=== PATIENT | female | born 1955 | race African-American/Black ===

== ENCOUNTER 2016-12-29 10:37 | Observation (INO) | payer OTHER ==
[2016-12-29] MEDS: NS 1000 ML 1,000 ML IV SCH (12:55)
[2016-12-29 13:01] LABS: EOSINOPHILS # (AUTO) 0.1 x10^3/uL (0.0-0.2); EOSINOPHILS % (AUTO) 2.2 % (0.9-2.9); HEMATOCRIT 37.5 % (36.0-47.0); HEMOGLOBIN 12.4 g/dL (12.0-16.0); LYMPHOCYTES # (AUTO) 1.2 X10^3/uL (1.3-2.9); LYMPHOCYTES % (AUTO) 26.4 % (21.0-51.0); MEAN CORPUSCULAR HEMOGLOBIN 26.9 pg (27.0-34.0); MEAN CORPUSCULAR VOLUME 81.4 fL (80.0-100.0); MEAN PLATELET VOLUME 8.1 fL (7.4-11.0); MONOCYTES # (AUTO) 0.6 x10^3/uL (0.3-0.8); MONOCYTES % (AUTO) 12.7 % (0.0-13.0); NEUTROPHILS # (AUTO) 2.7 x10^3/uL (2.2-4.8); NEUTROPHILS % (AUTO) 57.7 % (42.0-75.0); PLATELET COUNT 262 X10^3/uL (150.0-450.0); RED BLOOD COUNT 4.61 X10^6/uL (3.5-5.4); RED CELL DISTRIBUTION WIDTH 14.5 % (11.6-16.5); WHITE BLOOD COUNT 4.6 X10^3/uL (3.6-10.0)
[2016-12-29 13:21] LABS: ALANINE AMINOTRANSFERASE 19 Units/L (12-78); ALBUMIN 3.6 g/dL (3.4-5.0); ALKALINE PHOSPHATASE 104 Units/L (46-116); ASPARTATE AMINO TRANSFERASE 24 Units/L (15-37); BLOOD UREA NITROGEN 16 mg/dL (7-18); CALCIUM 9.4 mg/dL (8.5-10.1); CARBON DIOXIDE 28.7 mmol/L (21-32); CHLORIDE 103 mmol/L (98-107); CKMB % 0.8 % (<4); CREATINE KINASE 155 Units/L (26-192); CREATINE KINASE MB 1.2 ng/mL (0-4.0); CREATININE 1.09 mg/dL (0.55-1.02); MAGNESIUM 1.5 mg/dL (1.7-2.9); SODIUM 140 mmol/L (136-145); TOTAL PROTEIN 7.8 g/dL (6.4-8.2); TROPONIN I < 0.02 ng/mL (0-1.5); eGFR BLACK RACES > 60 (>60); eGFR NON BLACK RACES 54 (>60)
[2016-12-29 13:23] VITALS: BMI 40.3
--- NOTE | 2016-12-29 14:03 | RAD ---
AP chest Indication: Bradycardia which shortness of breath. Comparison: None available Findings: Lungs are clear and heart size is normal. No pleural effusion or pneumothorax. No acute oss eous abnormality. There appears to bilateral os acromiale. Impression: No acute cardiopulmonary abnormality. Reported By:
[2016-12-29 15:47] LABS: BILIRUBIN,URINE NEGATIVE (NEGATIVE); BLOOD/HEMOGLOBIN,URINE NEGATIVE (NEGATIVE); GLUCOSE, URINE NEGATIVE (NEGATIVE); KETONES,URINE NEGATIVE (NEGATIVE); LEUKOCYTE ESTERASE ,URINE NEGATIVE (NEGATIVE); NITRITES,URINE NEGATIVE (NEGATIVE); PROTEIN,URINE NEGATIVE (NEGATIVE); UROBILINOGEN,URINE NORMAL (NORMAL)
[2016-12-29 15:56] LABS: APPEARANCE,URINE CLEAR (CLEAR); BACTERIA,URINE TRACE /HPF (NEGATIVE); COLOR,URINE PALE YELLOW (YELLOW); RBC,URINE 0-2 /HPF (NEGATIVE); SQUAMOUS EPITHELIAL CELL,UR RARE /HPF (NEGATIVE)
[2016-12-30 07:27] LABS: BASOPHILS % (AUTO) 0.9 % (0.2-1.0); EOSINOPHILS # (AUTO) 0.1 x10^3/uL (0.0-0.2); HEMATOCRIT 36.5 % (36.0-47.0); LYMPHOCYTES # (AUTO) 1.3 X10^3/uL (1.3-2.9); LYMPHOCYTES % (AUTO) 31.5 % (21.0-51.0); MEAN CORPUSCULAR HEMOGLOBIN 26.7 pg (27.0-34.0); MEAN CORPUSCULAR HGB CONC 32.9 g/dL (33.0-35.0); MEAN CORPUSCULAR VOLUME 81.2 fL (80.0-100.0); MEAN PLATELET VOLUME 7.9 fL (7.4-11.0); MONOCYTES # (AUTO) 0.6 x10^3/uL (0.3-0.8); MONOCYTES % (AUTO) 14.8 % (0.0-13.0); NEUTROPHILS % (AUTO) 49.8 % (42.0-75.0); PLATELET COUNT 252 X10^3/uL (150.0-450.0); RED BLOOD COUNT 4.49 X10^6/uL (3.5-5.4); WHITE BLOOD COUNT 4.1 X10^3/uL (3.6-10.0)
[2016-12-30 07:31] LABS: ALANINE AMINOTRANSFERASE 17 Units/L (12-78); ALBUMIN 3.3 g/dL (3.4-5.0); ALKALINE PHOSPHATASE 99 Units/L (46-116); ASPARTATE AMINO TRANSFERASE 22 Units/L (15-37); BLOOD UREA NITROGEN 17 mg/dL (7-18); CALCIUM 9.1 mg/dL (8.5-10.1); CARBON DIOXIDE 27.7 mmol/L (21-32); CHLORIDE 106 mmol/L (98-107); COR CA(FOR HYPOALB) 9.7 mg/dL (8.5-10.1); COR NA(FOR HYPERGLY) 141 mmol/L (136-145); CREATININE 1.05 mg/dL (0.55-1.02); SODIUM 141 mmol/L (136-145); TOTAL PROTEIN 7.1 g/dL (6.4-8.2); eGFR BLACK RACES > 60 (>60); eGFR NON BLACK RACES 56 (>60)
[2016-12-30] MEDS ORDERED: GABAPENTIN PO PRN (08:17)
[2016-12-30] MEDS ORDERED: NEURONTIN CAP 300 MG PO PRN (08:34)
[2016-12-30] MEDS ORDERED: PATIENT'S HOME MEDICATION (Losartan Potassium [Losartan Potassium] 1 TAB) PO SCH (09:00)
[2016-12-30] MEDS: COZAAR PO SCH (09:13)
[2016-12-30] MEDS: PLAVIX PO SCH (09:14)
[2016-12-30] MEDS: NexIUM PO SCH (09:20)
[2016-12-30] MEDS: NORCO 10/325 TAB PO PRN (13:20)
[2016-12-30] MEDS: NS 1000 ML 1,000 ML IV SCH (13:43)
--- NOTE | 2016-12-30 18:26 | DR.H&P ---
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 PT HAS HX OF HTN. 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 PT WAS BRADYCARDIC, EKG RATE IN 40'S. PT admitted to ICU for further evaluation of bradycardia. Plan to obtain cardiac enzymes, EKG, chest x-ray, telemetry monitoring admission labs CBC CMP and magnesium level. We will hold beta blockers and continue losartan for blood pressure management. - Past Medical History Past Medical History: Arthritis, Diabetes, Hypertension - Past Surgical History Surgical History: Appendectomy, [employer] DESIGN Surgery Additional Surgical History: TIA - Family History Family Medical History: Diabetes Mellitus, [place], Coronary Artery Disease, Sudden Cardiac , Hypertension - Social History Does patient currently use any type of tobacco product: No Have you used tobacco products in the last 12 months: No Type of Tobacco Use: None Alcohol Use: None Drug Use: None - Medications Home Medications: Hydrocodone-Acet 10/325 mg [NORCO 10 MG/325 MG *] 1 tab PO Q8H PRN 12/29/16 [ History Confirmed 12/29/16] Losartan Potassium 1 tab PO DAILY 12/29/16 [History Confirmed 12/29/16] - Review of Systems Constitutional: Weakness Eyes: No Symptoms Reported ENT: No Symptoms Reported Respiratory: SOB with Excertion Cardiovascular: Light Headedness Gastrointestinal: Nausea, Vomiting Genitourinary: No Symptoms Reported Musculoskeletal: No Symptoms Reported Skin: No Symptoms Reported Neurological: Weakness - Physical Exam Vital Signs: Temperature 98.2 F Pulse Rate [Apical] 49 Respiratory Rate 16 Blood Pressure [Right Arm] 156/67 Blood Pressure 136/63 O2 Sat by Pulse Oximetry 99 Oriented: Normal Eyes: Normal Ear: Normal Nose: Normal Throat: Normal Respiratory: RLL Diminished, LLL Diminished Cardiovascular: Bradycardia, Edema : Normal Auscultation: Bowel Sounds: Normal Palpation: Normal Tenderness: Normal Skin: Diaphoresis Musculoskeletal: Back:Thoracic, Back:Lumbar Psychiatric: Anxiety Speech Pattern: Clear, Appropriate - Assessment/Plan (1) Bradycardia Status: Acute Plan: symptomatic bradycardia. Admit to ICU, telemetry, cardiac enzymes CBC CMP and magnesium on admission, 12-lead EKG, chest x-ray. Blood pressure monitoring. Hold beta james, repeat a.m. labs (2) Hypertension Status: Acute (3) Diabetes Status: Acute
[2016-12-30] MEDS: NORVASC TAB 5 MG PO SCH (20:17)
[2016-12-30] MEDS: MAG-OX TAB PO SCH (20:18)
[2016-12-31 06:19] LABS: BASOPHILS % (AUTO) 0.9 % (0.2-1.0); EOSINOPHILS # (AUTO) 0.1 x10^3/uL (0.0-0.2); EOSINOPHILS % (AUTO) 2.8 % (0.9-2.9); HEMATOCRIT 36.3 % (36.0-47.0); HEMOGLOBIN 12.2 g/dL (12.0-16.0); LYMPHOCYTES # (AUTO) 1.2 X10^3/uL (1.3-2.9); LYMPHOCYTES % (AUTO) 33.7 % (21.0-51.0); MEAN CORPUSCULAR HEMOGLOBIN 27.2 pg (27.0-34.0); MEAN CORPUSCULAR HGB CONC 33.7 g/dL (33.0-35.0); MEAN CORPUSCULAR VOLUME 80.8 fL (80.0-100.0); MEAN PLATELET VOLUME 8.1 fL (7.4-11.0); MONOCYTES # (AUTO) 0.5 x10^3/uL (0.3-0.8); MONOCYTES % (AUTO) 14.2 % (0.0-13.0); NEUTROPHILS # (AUTO) 1.8 x10^3/uL (2.2-4.8); NEUTROPHILS % (AUTO) 48.4 % (42.0-75.0); PLATELET COUNT 242 X10^3/uL (150.0-450.0); RED BLOOD COUNT 4.49 X10^6/uL (3.5-5.4); RED CELL DISTRIBUTION WIDTH 15.1 % (11.6-16.5); WHITE BLOOD COUNT 3.7 X10^3/uL (3.6-10.0)
[2016-12-31 06:28] LABS: ALANINE AMINOTRANSFERASE 18 Units/L (12-78); ALBUMIN 3.3 g/dL (3.4-5.0); ALKALINE PHOSPHATASE 101 Units/L (46-116); ASPARTATE AMINO TRANSFERASE 22 Units/L (15-37); BLOOD UREA NITROGEN 13 mg/dL (7-18); CALCIUM 9.1 mg/dL (8.5-10.1); CARBON DIOXIDE 28.9 mmol/L (21-32); CHLORIDE 105 mmol/L (98-107); COR CA(FOR HYPOALB) 9.7 mg/dL (8.5-10.1); CREATININE 1.09 mg/dL (0.55-1.02); SODIUM 141 mmol/L (136-145); TOTAL PROTEIN 7.2 g/dL (6.4-8.2); eGFR BLACK RACES > 60 (>60); eGFR NON BLACK RACES 54 (>60)
[2016-12-31] MEDS: MAG-OX TAB PO SCH (06:29)
[2016-12-31 08:09] VITALS: BP 154/72
[2016-12-31] MEDS: COZAAR PO SCH (08:24)
[2016-12-31] MEDS: NORVASC TAB 5 MG PO SCH (08:24)
[2016-12-31] MEDS: PLAVIX PO SCH (08:24)
[2016-12-31] MEDS: NORCO 10/325 TAB PO PRN (08:30)
[2016-12-31] MEDS: NexIUM PO SCH (08:30)
== END 2016-12-31 11:20 | disposition home or self-care (01) ==
LOC: ICU 10:37 → UNDOADMOB 10:37 → ICU 12:00
PROVIDERS: ADMIT Internal Medicine; ATTEND Internal Medicine
DX: R00.1 Bradycardia, unspecified (principal); I10 Essential (primary) hypertension; R42 Dizziness and giddiness; E11.9 Type 2 diabetes mellitus without complications; R82.99 Other abnormal findings in urine
CPT/HCPCS: 36415; 71010; 80053; 81001; 82550; 82553; 83735; 84484; 85025; 93005; 93010; A4222; G0378

== ENCOUNTER 2017-02-10 19:58 | Emergency (ER) | payer OTHER ==
[2017-02-10 20:06] VITALS: BMI 41.1
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
[2017-02-10] MEDS ORDERED: TORADOL 60 MG VIAL IM ONE (21:15)
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
[2017-02-10] MEDS ORDERED: TORADOL 60 MG VIAL ONE (21:23)
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
[2017-02-10 22:29] VITALS: BP 163/71
== END 2017-02-10 22:20 | disposition home or self-care (01) ==
LOC: ER 20:06
DX: S29.019A Strain of muscle and tendon of unspecified wall of thorax, initial encounter (principal); S33.5XXA Sprain of ligaments of lumbar spine, initial encounter; S13.9XXA Sprain of joints and ligaments of unspecified parts of neck, initial encounter; R51 Headache; V49.9XXA Car occupant (driver) (passenger) injured in unspecified traffic accident, initial encounter
CPT/HCPCS: 70450; 72125; 72128; 72131; 96372; 99283; J1885

== ENCOUNTER 2017-06-08 12:10 | Observation (INO) | payer OTHER ==
[2017-06-08] MEDS ORDERED: HumuLIN R SUBCUT PRN (12:50)
[2017-06-08] MEDS ORDERED: GABAPENTIN PO PRN (12:55)
--- NOTE | 2017-06-08 13:35 | DR.H&P ---
H&P - History & Physical for Day of: H&P Date: 06/08/17 - Chief Complaint Chief Complaint: LEFT SIDE WEAKNESS, LARIOS, DIZZINESS - Allergies Allergies/Adverse Reactions: Allergies Allergy/AdvReac Type Severity Reaction Status Date / Time No Known Drug Allergies Allergy Verified 12/29/16 12:12 - History of Present Illness History of Present Illness: 62 BF DIRECT ADMIT FROM DR SCHNEIDER OFFICE WITH NEW ONSET OF LEFT SIDE WEAKNESS, UPPER AND LOWER EXTREMITY WEAKNESS WITH LARIOS, DIZZINESS AND LARIOS. PT STATES WEAKNESS FOR 2 DAYS WITHOUT IMPROVEMENT. PT HAS PMH OF HTN, DM, OA, CAD, HYPERLIPIDEMIA. LUMBAR SPINE DDD. PT ADMITTED FOR R/O CVA , BP CONTROL, CARDIAC MONITING AND EVALUATION OF WEAKNESS. 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 denies: Chest Pain Gastrointestinal: Nausea Genitourinary: No Symptoms Reported Musculoskeletal: Back Pain, Neck Pain Skin: No Symptoms Reported Neurological: Weakness, Numbness, Incoordination - Physical Exam Vital Signs: Blood Pressure [Left Arm] 163/71 Blood Pressure [Right Arm] 154/72 Blood Pressure 163/71 Oriented: Normal Eyes: Normal Ear: Normal Nose: Normal Throat: Normal Respiratory: RLL Diminished, LLL Diminished Cardiovascular: Normal : Normal Auscultation: Bowel Sounds: Normal Palpation: Normal Tenderness: Normal Skin: Normal Musculoskeletal: Back:Thoracic, Back:Lumbar, Motor Deficit (WEAKNESS TO LEFT UPPER AND LOWER EXTREMITY WEAKNESS), Sensory Deficit Psychiatric: Anxiety Affect: Anxious Speech Pattern: Clear, Appropriate - Assessment/Plan (1) Acute left-sided weakness Status: Acute Plan: ADMIT ICU, CT HEAD, CTA CAROTIDS. BP AND LIPID CONTROL. SSI, BLOOD SUGAR MONITORING. ADMISSION LABS, EKG, CARDIAC PROFILE. MRI LUMBAR SPINE, PAIN CONTROL, PLAVIX ASA (2) Hyperlipidemia Status: Acute (3) Headache disorder Status: Acute (4) Dizziness Status: Acute (5) Diabetes Status: Acute (6) Hypertension Status: Acute
[2017-06-08 14:33] LABS: BASOPHILS % (AUTO) 0.5 % (0.2-1.0); EOSINOPHILS # (AUTO) 0.1 x10^3/uL (0.0-0.2); EOSINOPHILS % (AUTO) 0.9 % (0.9-2.9); HEMATOCRIT 39.4 % (36.0-47.0); LYMPHOCYTES # (AUTO) 1.2 X10^3/uL (1.3-2.9); LYMPHOCYTES % (AUTO) 21.4 % (21.0-51.0); MEAN CORPUSCULAR HEMOGLOBIN 26.7 pg (27.0-34.0); MEAN CORPUSCULAR HGB CONC 33.1 g/dL (33.0-35.0); MEAN CORPUSCULAR VOLUME 80.9 fL (80.0-100.0); MEAN PLATELET VOLUME 7.4 fL (7.4-11.0); MONOCYTES # (AUTO) 0.4 x10^3/uL (0.3-0.8); MONOCYTES % (AUTO) 7.7 % (0.0-13.0); NEUTROPHILS # (AUTO) 3.9 x10^3/uL (2.2-4.8); NEUTROPHILS % (AUTO) 69.5 % (42.0-75.0); PLATELET COUNT 320 X10^3/uL (150.0-450.0); RED BLOOD COUNT 4.87 X10^6/uL (3.5-5.4); RED CELL DISTRIBUTION WIDTH 14.7 % (11.6-16.5); WHITE BLOOD COUNT 5.6 X10^3/uL (3.6-10.0)
[2017-06-08] MEDS: NORCO 10/325 TAB PO PRN ×3 (14:50→22:16)
[2017-06-08 15:11] LABS: BLOOD UREA NITROGEN 12 mg/dL (7-18); CALCIUM 9.2 mg/dL (8.5-10.1); CHLORIDE 99 mmol/L (98-107); COR NA(FOR HYPERGLY) 139 mmol/L (136-145); CREATININE 1.13 mg/dL (0.55-1.02); SODIUM 138 mmol/L (136-145); TROPONIN I < 0.02 ng/mL (0-1.5); eGFR BLACK RACES > 60 (>60); eGFR NON BLACK RACES 52 (>60)
[2017-06-08 15:17] LABS: ALANINE AMINOTRANSFERASE 23 Units/L (12-78); ALBUMIN 3.7 g/dL (3.4-5.0); ALKALINE PHOSPHATASE 129 Units/L (46-116); ASPARTATE AMINO TRANSFERASE 20 Units/L (15-37); CKMB % 1.1 % (<4); CREATINE KINASE 100 Units/L (26-192); CREATINE KINASE MB 1.1 ng/mL (0-4.0); TOTAL PROTEIN 8.8 g/dL (6.4-8.2)
[2017-06-08] MEDS ORDERED: NS 100 ML IV 100 ML IV ONE (16:20)
--- NOTE | 2017-06-08 16:45 | MRI ---
HISTORY: Lower extremity paresthesia, weakness, low back pain, degenerative disc disease Study: MRI lumbar spine without contrast Comparison: 05/22/2015 MRI, 02/10/2017 CT Technique: Multiplanar multi-sequence MRI of the lumbar spine was obtained. Sagittal T1, sagittal T2 , and stir weighted images, axial T1, and axial T2 images were obtained. Findings: The lumbar spine demonstrates normal alignment. No abnormal cord or marrow signal identified. The co nus of the cord terminates normally. The surrounding soft tissues are within normal limits. Vertebra l body heights are preserved. Multilevel spondylosis and disc desiccation is present. T12 -- L1: No significant stenosis. L1 -- L2: No significant stenosis. L2 -- L3: Chgy-ws-qfhuqjmo facet degenerative changes with lateral disc bulging resulting in mild patricia ateral foraminal narrowing. L3 -- L4: There is disc height loss with desiccation, broad-based disc bulge and moderate facet arthr opathy/hypertrophy changes resulting in moderate to severe left and moderate right foraminal stenosis and mild bilateral lateral recess stenosis. L4 -- L5: There is a broad-based disc bulge and facet hypertrophy changes resulting in moderate left foraminal stenosis and [id number] right lateral recess and foraminal stenosis. L5 -- S1: There is a broad-based disc bulge and advanced facet degenerative/hyper trophic changes wit h fluid in the left facet joint. There is moderate left and mild right foraminal stenosis. IMPRESSION: Chronic multilevel discogenic and facet degenerative changes as described worse at L3-L4; please see above for full detail. Reported By:
--- NOTE | 2017-06-08 17:40 | CT ---
CT brain without contrast Indication: Left-sided weakness Comparison: 02/10/2017 Technique: Multiple axial images of the brain were obtained from the skull base to the vertex without administra tion of IV contrast. Findings: No acute intraparenchymal hemorrhage or mass can be identified. No extra-axial fluid collections are seen. No alteration in the attenuation of the brain parenchyma can be identified to suggest acute o r subacute ischemic change. The ventricular system is symmetric and nondilated. The extracranial st ructures are grossly unremarkable. IMPRESSION: 1. No acute intracranial process is identified. Reported By:
--- NOTE | 2017-06-08 18:02 | CT ---
Indication: CVA. Exam: CTA carotids. Technique: Axial spiral images were obtained from the base the skull through the aortic arch after ashley martha administration IV contrast with coronal and sagittal 3D MIP reconstructions performed. Findings: The visualized aortic arch is well opacified and the great vessels are patent and normal ca liber. Both common carotid arteries are patent and normal caliber. The carotid bifurcation are widely patent bilaterally with no significant plaque or narrowing seen. Both internal carotid arteries are patent normal caliber seen to the base of the skull with no dissection or narrowing. The carotid siph ons are patent normal caliber with a normal bifurcation intracranially . There is good tapering of th e peripheral MCA and JULIA vessels with no proximal filling defect or vessel cut off . No vertebral art eries are patent normal caliber. There is no dissection or narrowing seen. The intracranial portions of the vertebrals are patent and the basilar artery is unremarkable with both posterior cerebral terese blanca appearing patent and normal caliber. The visualized intracranial vessels taper peripherally with no vascular malformation or aneurysm seen . There is a questionable 6 mm nodule along centrally jennyfer g the right upper lobe and there are some tiny pleural-based nodules or scarring along both upper lob es and apices . There are lymph nodes in the AP window measuring up to 1.4 cm with right paratracheal lymph nodes with the largest seen inferiorly measuring 1.2 cm. Degenerative seen throughout spine wi th no aggressive osseous lesion. The paravertebral soft tissues are normal. Impression: Unremarkable carotid vasculature in the neck with no significant plaque or narrowing seen in the bifu rcations. Unremarkable vertebral arteries with no narrowing or dissection. Unremarkable intracranial vasculature. Small pulmonary nodules along the upper lobes and apices and mild mediastinal adenopathy. Recommend a follow-up CT scan of the chest for further evaluation. Reported By:
--- NOTE | 2017-06-08 18:33 | RAD ---
Indication: Pain Exam: Portable chest Comparison: 12/31/2016 Findings: The heart is normal. The pulmonary vessels are normal. There is overlying EKG lead artifact . No consolidation or effusion is seen. The bones are intact. Impression: Overlying EKG lead artifact otherwise, stable with no acute abnormality seen. Reported By:
[2017-06-08] MEDS: SNACK - Diabetic Appropriate PO SCH (20:30)
[2017-06-09 06:23] LABS: BASOPHILS % (AUTO) 0.4 % (0.2-1.0); EOSINOPHILS # (AUTO) 0.1 x10^3/uL (0.0-0.2); EOSINOPHILS % (AUTO) 2.5 % (0.9-2.9); HEMATOCRIT 36.2 % (36.0-47.0); HEMOGLOBIN 12.1 g/dL (12.0-16.0); LYMPHOCYTES # (AUTO) 1.2 X10^3/uL (1.3-2.9); LYMPHOCYTES % (AUTO) 29.4 % (21.0-51.0); MEAN CORPUSCULAR HEMOGLOBIN 26.9 pg (27.0-34.0); MEAN CORPUSCULAR HGB CONC 33.3 g/dL (33.0-35.0); MEAN CORPUSCULAR VOLUME 80.8 fL (80.0-100.0); MEAN PLATELET VOLUME 7.7 fL (7.4-11.0); MONOCYTES # (AUTO) 0.6 x10^3/uL (0.3-0.8); MONOCYTES % (AUTO) 13.8 % (0.0-13.0); NEUTROPHILS # (AUTO) 2.2 x10^3/uL (2.2-4.8); NEUTROPHILS % (AUTO) 53.9 % (42.0-75.0); PLATELET COUNT 291 X10^3/uL (150.0-450.0); RED BLOOD COUNT 4.48 X10^6/uL (3.5-5.4); RED CELL DISTRIBUTION WIDTH 15.1 % (11.6-16.5); WHITE BLOOD COUNT 4.1 X10^3/uL (3.6-10.0)
[2017-06-09 06:37] LABS: ALANINE AMINOTRANSFERASE 21 Units/L (12-78); ALBUMIN 3.3 g/dL (3.4-5.0); ALKALINE PHOSPHATASE 127 Units/L (46-116); ASPARTATE AMINO TRANSFERASE 20 Units/L (15-37); BLOOD UREA NITROGEN 12 mg/dL (7-18); CARBON DIOXIDE 29.7 mmol/L (21-32); CHLORIDE 101 mmol/L (98-107); COR CA(FOR HYPOALB) 9.6 mg/dL (8.5-10.1); SODIUM 139 mmol/L (136-145); TOTAL PROTEIN 7.9 g/dL (6.4-8.2); eGFR BLACK RACES > 60 (>60); eGFR NON BLACK RACES 59 (>60)
[2017-06-09] MEDS ORDERED: MILK OF MAGNESIA PO PRN (07:15)
[2017-06-09] MEDS: COLACE CAP 100 MG PO SCH ×2 (09:12→21:54)
[2017-06-09] MEDS: NexIUM PO SCH (09:12)
[2017-06-09] MEDS: NEURONTIN CAP 300 MG PO SCH (09:12)
[2017-06-09] MEDS: COZAAR PO SCH (09:12)
[2017-06-09] MEDS: PLAVIX PO SCH (09:13)
[2017-06-09] MEDS: NORCO 10/325 TAB PO PRN (09:18)
[2017-06-09] MEDS: FLEXERIL TAB 10 MG PO SCH ×3 (09:48→21:55)
[2017-06-09] MEDS: SOLU-Medrol 125 MG VIAL IVP SCH ×3 (09:49→23:04)
[2017-06-09 09:52] VITALS: BMI 39.9
[2017-06-09] MEDS: SNACK - Diabetic Appropriate PO SCH (21:54)
[2017-06-10] MEDS: FLEXERIL TAB 10 MG PO SCH ×2 (06:26→13:53)
[2017-06-10] MEDS: SOLU-Medrol 125 MG VIAL IVP SCH ×2 (06:27→13:53)
[2017-06-10 06:38] LABS: BASOPHILS % (AUTO) 0.2 % (0.2-1.0); HEMATOCRIT 35.9 % (36.0-47.0); HEMOGLOBIN 12.1 g/dL (12.0-16.0); LYMPHOCYTES # (AUTO) 0.7 X10^3/uL (1.3-2.9); LYMPHOCYTES % (AUTO) 14.3 % (21.0-51.0); MEAN CORPUSCULAR HGB CONC 33.5 g/dL (33.0-35.0); MEAN CORPUSCULAR VOLUME 80.5 fL (80.0-100.0); MEAN PLATELET VOLUME 7.8 fL (7.4-11.0); MONOCYTES # (AUTO) 0 x10^3/uL (0.3-0.8); MONOCYTES % (AUTO) 1.1 % (0.0-13.0); NEUTROPHILS % (AUTO) 84.4 % (42.0-75.0); PLATELET COUNT 299 X10^3/uL (150.0-450.0); RED BLOOD COUNT 4.46 X10^6/uL (3.5-5.4); RED CELL DISTRIBUTION WIDTH 14.9 % (11.6-16.5); WHITE BLOOD COUNT 4.7 X10^3/uL (3.6-10.0)
[2017-06-10 06:40] LABS: ALANINE AMINOTRANSFERASE 21 Units/L (12-78); ALBUMIN 3.2 g/dL (3.4-5.0); ALKALINE PHOSPHATASE 114 Units/L (46-116); ASPARTATE AMINO TRANSFERASE 20 Units/L (15-37); BLOOD UREA NITROGEN 13 mg/dL (7-18); CARBON DIOXIDE 26.4 mmol/L (21-32); CHLORIDE 101 mmol/L (98-107); COR CA(FOR HYPOALB) 9.6 mg/dL (8.5-10.1); COR NA(FOR HYPERGLY) 139 mmol/L (136-145); CREATININE 1.03 mg/dL (0.55-1.02); SODIUM 138 mmol/L (136-145); eGFR BLACK RACES > 60 (>60); eGFR NON BLACK RACES 57 (>60)
[2017-06-10] MEDS: COZAAR PO SCH (08:26)
[2017-06-10] MEDS: NexIUM PO SCH (08:26)
[2017-06-10] MEDS: NEURONTIN CAP 300 MG PO SCH (08:26)
[2017-06-10] MEDS: PLAVIX PO SCH (08:27)
--- NOTE | 2017-06-10 11:33 | MRI ---
MR cervical spine without contrast Indication: Upper extremity paresthesias and weakness Technique: Multiplanar multi sequence imaging through the cervical spine without contrast. Comparison: Neck CT from 06/08/2017 reviewed. Findings: Bone marrow signal is normal. Posterior fossa structures appear normal. Visualized facial s oft tissues are normal. Prevertebral soft tissues are normal. Soft tissues of the neck show no unexpe cted abnormality. Craniocervical junctions are intact. There is disc degenerative change at C4 throug h C6 most pronounced with mild facet arthropathy. Upper thoracic spine appears normal. Spinal cord signal is relatively normal. C2-C3: Minimal disc degenerative change without high-grade stenosis seen. C3-C4: Minimal disc degenerative change and facet arthropathy without high-grade stenosis identified. Minimal left neural foramen narrowing and mild spinal canal narrowing due to disc osteophytes is not ed. C4-C5: Mild disc degenerative change and facet arthropathy causes mild left neural foramen narrowing and minimal spinal canal narrowing without severe stenosis. C5-C6: Disc osteophytes and facet arthropathy cause minimal spinal canal and mild left neural foramen narrowing without severe stenosis. C6-C7: Disc osteophytes and facet arthropathy causes mild to moderate left and mild right neural fora men narrowing. There is moderate spinal canal narrowing C7-T1: Disc osteophytes and facet arthropathy cause moderate spinal canal narrowing and ouvm-fi-fmydg ate left neural foramen narrowing T1-T2: No severe stenosis Impression: 1. Multilevel disc degenerative change and facet arthropathy with moderate spinal canal narrowing at C6-C7 and C7-T1. 2. Neural foramen narrowing noted as above due to osteophytes common generally worse on the left. Reported By:
[2017-06-10] MEDS ORDERED: TORADOL 30 MG VIAL IVP ONE (12:33)
[2017-06-10 15:52] VITALS: BP 127/59
== END 2017-06-10 16:50 | disposition home or self-care (01) ==
LOC: ICU 12:10 → UNDOADMOB 12:10 → ICU 13:45
PROVIDERS: ADMIT Internal Medicine; ATTEND Internal Medicine
DX: R53.1 Weakness (principal); I10 Essential (primary) hypertension; E11.9 Type 2 diabetes mellitus without complications; E78.5 Hyperlipidemia, unspecified; M19.90 Unspecified osteoarthritis, unspecified site; M50.30 Other cervical disc degeneration, unspecified cervical region; M51.36 Other intervertebral disc degeneration, lumbar region; R20.2 Paresthesia of skin; R42 Dizziness and giddiness; G44.009 Cluster headache syndrome, unspecified, not intractable; M79.2 Neuralgia and neuritis, unspecified; M79.1 Myalgia; Z86.73 Personal history of transient ischemic attack (TIA), and cerebral infarction without residual deficits; R94.31 Abnormal electrocardiogram [ECG] [EKG]
CPT/HCPCS: 36415; 70450; 70498; 71045; 72141; 72148; 80053; 82550; 82553; 84484; 85025; 93005; 93010; 97535; A4222; G8987; G8988; G8990; G8991; G8996; G8997; G0378; J1885; J2930

== ENCOUNTER 2022-08-03 09:21 | Observation (INO) ==
--- NOTE | 2022-08-03 09:43 | DR.HEADACH ---
HPI Time Seen Time Seen by Provider: 08/03/22 09:42 Primary Care Physician Primary Care Physician: Shey Jesus Complaint/Symptoms Chief Complaint Doctors Comments: RIGHT TEMPORAL HEADACHE THAT STARTED AT BACK OF HEAD ON WEDNESDAY. Chief Complaint:: severe headache onset Wednesday, patient complains of roper pain to occipital yesterday and now has pain right temporal area. COVID-19 Coronavirus risk:travel/contact w/high risk person: No Has patient experienced Coronavirus symptoms: No Reviewed Nurses Notes Reviewed: Yes Source History Provided: Patient Timing Onset of Chief Complaint: 08/01/22 PMH PMH Past Medical History: Yes Past Medical History: Arthritis and Hypertension Past Surgical History: Yes Surgical History: Appendectomy and PATCHING [employer]ACHINE [employer] Surgery Past Surgical History Comment: partial hyst Family History History of Family Medical Conditions: Yes Family Medical History: Diabetes Mellitus, [place], Coronary Artery Disease and Hypertension Social History Does patient currently use any type of tobacco product: No Have you used tobacco products in the last 12 months: No Type of Tobacco Use: None Does any household member use tobacco: No Alcohol Use: None Do you use any recreational Drugs:: No Lives With: Alone Lives Where: Home Travel Risk Coronavirus risk:travel/contact w/high risk person: No Has patient experienced Coronavirus symptoms: No Infectious screening In the last 2 months have you had wt loss of >10#?: NO Have you had fever, night sweats or hemotysis?: No Have you traveled outside the country in the last 6 months?: No Isolation: Standard ROS Review of Systems Constitutional: Weakness and Fatigue; negative Fever Eyes: No Symptoms Reported; negative Blurred Vision ENTM: No Symptoms Reported; negative Nose Discharge or Nose Congestion Respiratoy: No Symptoms Reported; negative Moist Cough, Short of Breath or Wheezing Cardiovascular: No Symptoms Reported; negative Chest Pain or Edema Gastrointestinal/Abdominal: No Symptoms Reported; negative Abdominal Pain, Diarrhea, Nausea or Vomiting Genitourinary: No Symptoms Reported; negative Dysuria Neurological: Headache; negative Weakness or Dizziness Musculoskeletal: No Symptoms Reported; negative Muscle Pain Integumentary: No Symptoms Reported; negative Rash or Juandice Hematologic/Lymphatic: No Symptoms Reported; negative Easy Bruising Endocrine: No Symptoms Reported; negative Increased Thirst or Increased Urine Psychiatric: No Symptoms Reported All Other Systems: Reviewed and Negative PE Vital Signs Vitals: Temperature 98.5 F Pulse Rate 65 Respiratory Rate 20 Blood Pressure [Left Arm] 163/71 Blood Pressure [Right Arm] 127/59 Blood Pressure 167/75 O2 Sat by Pulse Oximetry 99 General Limitations: No Limitations General Appearance: Alert and In No Apparent Distress Head Head Exam: Normal Inspection and Atraumatic Eyes Eye exam: Normal Appearance, PERRL and EOMI; negative Scleral Icterus or Conjunctival Injection Eyelids: Normal Inspection: Bilateral Pupils: Regular, Round: Bilateral and Reactive: Bilateral Sclera/Conjunctival: Normal Inspection: Bilateral ENT ENT Exam: Normal Exam, Normal Oropharynx, Normal External Ear Exam and TM's Normal Bilaterally External Ear Exam: Normal External Inspection; negative Mastoid Tenderness TM/Canal Exam: Bilateral: Normal Nose Exam: Normal Nose Exam Mouth Exam: Normal Inspection Teeth Exam: Normal Inspection Throat Exam: Normal Inspection; negative Tonsillar Erythema, Tonsillomegaly or Tonsillar Exudate Neck Neck Exam: Normal Inspection and Trachea Midline; negative Tenderness Chest Chest Inspection: Normal Inspection and Symmetric Chest Wall Rise; negative Tenderness Respiratory Respiratory Exam: Normal Lung Sounds Bilat; negative Accessory Muscle Use, Chest Wall Tenderness or Respiratory Distress Respiratory Exam: Bilateral: Rhonchi Cardiovascular Cardiovascular Exam: Regular Rate, Normal Rhythm and Normal Heart Sounds; negative Systolic Murmur or Diastolic Murmur Abdominal Exam Abdominal Exam: Normal Inspection, Normal Bowel Sounds and Soft; negative Tenderness Extremities Extremities Exam: Normal Inspection and Normal Capillary Refill Back Back Exam: Normal Inspection; negative (R) CVA Tenderness or (L) CVA Tenderness Neurologic Neurological Exam: Alert and Oriented X3; negative Motor Sensory Deficit Psychiatric Psychiatric Exam: Normal Affect and Normal Mood Skin Skin Exam: Intact MDM Differential Diagnosis Differential Diagnosis: Considerations may include:: Migraine, Hypertensive, CVA, Mass Lesion and Sinusitis COURSE Treatment Treatment: SEE ORDERS DONE WHILE PATIENT WAS IN ER. LABS AND CT REPORTS DISCUSSED WITH PATIENT. PATIENT WILL BE ADMITTED TO HOSPITAL FOR FURTHER MANAGEMENT. Consultation Consultation Comments: DISCUSSED PATIENT WITH DR. BENOIT. HE WILL ADMIT PATIENT. [facility] Labs Reviewed Laboratory Results Reviewed?: Yes Result Diagrams: 08/04/22 06:57 08/04/22 06:57 Laboratory: WBC 5.3 X10^3/uL (3.6-10.0) 08/03/22 10:00 RBC 4.36 X10^6/uL (3.5-5.4) 08/03/22 10:00 Hgb 11.2 g/dL (12.0-16.0) L 08/03/22 10:00 Hct 34.6 % (36.0-47.0) L 08/03/22 10:00 MCV 79.4 fL (80.0-100.0) L 08/03/22 10:00 MCH 25.7 pg (27.0-34.0) L 08/03/22 10:00 MCHC 32.3 g/dL (33.0-35.0) L 08/03/22 10:00 RDW 15.2 % (11.6-16.5) 08/03/22 10:00 Plt Count 282 X10^3/uL (150.0-450.0) 08/03/22 10:00 MPV 7.6 fL (7.4-11.0) 08/03/22 10:00 Neut % (Auto) 71.9 % (42.0-75.0) 08/03/22 10:00 Lymph % (Auto) 17.1 % (21.0-51.0) L 08/03/22 10:00 [place] % (Auto) 9.2 % (0.0-13.0) 08/03/22 10:00 Eos % (Auto) 1.2 % (0.9-2.9) 08/03/22 10:00 Baso % (Auto) 0.6 % (0.2-1.0) 08/03/22 10:00 Neut # (Auto) 3.8 x10^3/uL (2.2-4.8) 08/03/22 10:00 Lymph # (Auto) 0.9 X10^3/uL (1.3-2.9) L 08/03/22 10:00 [place] # (Auto) 0.5 x10^3/uL (0.3-0.8) 08/03/22 10:00 Eos # (Auto) 0.1 x10^3/uL (0.0-0.2) 08/03/22 10:00 Baso # (Auto) 0.0 X10^3/uL (0.0-0.1) 08/03/22 10:00 Absolute Nucleated RBC 0.0 /100WBC 08/03/22 10:00 PT 13.5 SECONDS (11.8-14.3) 08/03/22 10:00 INR Target Range - 08/03/22 10:00 INR 1.05 (0.8-1.3) 08/03/22 10:00 APTT 30.9 SECONDS (22.9-36.5) 08/03/22 10:00 PTT Comment - 08/03/22 10:00 Sodium 141 mmol/L (136-145) 08/03/22 10:00 Corrected Sodium TNP 08/03/22 10:00 Potassium 3.6 mmol/L (3.5-5.1) 08/03/22 10:00 Chloride 103 mmol/L (98-107) 08/03/22 10:00 Carbon Dioxide 27.7 mmol/L (21-32) 08/03/22 10:00 BUN 10 mg/dL (7-18) 08/03/22 10:00 Creatinine 0.92 mg/dL (0.55-1.02) 08/03/22 10:00 Est GFR (MDRD) Af Amer > 60 (>60) 08/03/22 10:00 Est GFR (MDRD) Non-Af > 60 (>60) 08/03/22 10:00 Glucose 101 mg/dL (65-99) H 08/03/22 10:00 Calcium 8.6 mg/dL (8.5-10.1) 08/03/22 10:00 Corrected Calcium TNP 08/03/22 10:00 Total Bilirubin 0.30 mg/dL (0.2-1.0) 08/03/22 10:00 AST 25 Units/L (15-37) 08/03/22 10:00 ALT 17 Units/L (12-78) 08/03/22 10:00 Alkaline Phosphatase 114 Units/L (46-116) 08/03/22 10:00 Creatine Kinase 118 Units/L (26-192) 08/03/22 10:00 Troponin I High Sens 9.1 ng/L (4.0-60.0) 08/03/22 10:00 B-Natriuretic Peptide 37.1 pg/mL (0-79) 08/03/22 10:00 Total Protein 7.2 g/dL (6.4-8.2) 08/03/22 10:00 Albumin 3.5 g/dL (3.4-5.0) 08/03/22 10:00 Globulin 3.7 g/dL (2.5-4.5) 08/03/22 10:00 Albumin/Globulin Ratio 0.9 Ratio (1.1-2.1) L 08/03/22 10:00 Specimen Type Random urine 08/03/22 10:40 Urine Color Pale yellow (YELLOW) 08/03/22 10:40 Urine Appearance Clear (CLEAR) 08/03/22 10:40 Urine pH 6.5 (5.0 - 8.0) 08/03/22 10:40 Ur Specific [place] 1.015 (1.000-1.030) 08/03/22 10:40 Urine Protein Negative (NEGATIVE) 08/03/22 10:40 Urine Glucose (UA) Negative (NEGATIVE) 08/03/22 10:40 Urine Ketones Negative (NEGATIVE) 08/03/22 10:40 Urine Blood Negative (NEGATIVE) 08/03/22 10:40 Urine Nitrite Negative (NEGATIVE) 08/03/22 10:40 Urine Bilirubin Negative (NEGATIVE) 08/03/22 10:40 Urine Urobilinogen Normal (NORMAL) 08/03/22 10:40 Ur Leukocyte Esterase Negative (NEGATIVE) 08/03/22 10:40 XRAY XRAY Interpreted by: Radiologist (REPORT NOTED.) and Self EKG Rate: 52 [place]: Normal Rhythm: SB Block: None Hypertrophy: None ST: Infarct (SEPTAL INFARCT AGE INDERMINED.) Opioid Opioid Risk Tool Age (Margarito box if 16-45): No History of Preadolescent Sexual Abuse: No Total: 0 Total Score Risk Category: Low Risk Copyright: Jameson RAMON predicting aberrant behaviors Discharge Plan Diagnosis Discharge Problem: TIA (transient ischemic attack), Headache, Hypertensive emergency Discharge Plan Patient Disposition: ADMITTED INPATIENT Condition: Stable
[2022-08-03] MEDS ORDERED: MORPHINE SULFATE INJ 4 MG IVP ONE (09:48)
[2022-08-03] MEDS ORDERED: CATAPRES TAB 0.2 MG PO ONE (09:48)
[2022-08-03] MEDS ORDERED: ZOFRAN INJ 4 MG VIAL IVP ONE (09:48)
[2022-08-03] MEDS ORDERED: CATAPRES TAB 0.2 MG ONE (09:54)
[2022-08-03] MEDS ORDERED: MORPHINE SULFATE INJ 4 MG ONE (09:54)
[2022-08-03] MEDS ORDERED: ZOFRAN INJ 4 MG VIAL ONE (09:54)
[2022-08-03 10:12] LABS: BASOPHILS % (AUTO) 0.6 % (0.2-1.0); EOSINOPHILS # (AUTO) 0.1 x10^3/uL (0.0-0.2); EOSINOPHILS % (AUTO) 1.2 % (0.9-2.9); HEMATOCRIT 34.6 % (36.0-47.0); HEMOGLOBIN 11.2 g/dL (12.0-16.0); LYMPHOCYTES # (AUTO) 0.9 X10^3/uL (1.3-2.9); LYMPHOCYTES % (AUTO) 17.1 % (21.0-51.0); MEAN CORPUSCULAR HEMOGLOBIN 25.7 pg (27.0-34.0); MEAN CORPUSCULAR HGB CONC 32.3 g/dL (33.0-35.0); MEAN CORPUSCULAR VOLUME 79.4 fL (80.0-100.0); MEAN PLATELET VOLUME 7.6 fL (7.4-11.0); MONOCYTES # (AUTO) 0.5 x10^3/uL (0.3-0.8); MONOCYTES % (AUTO) 9.2 % (0.0-13.0); NEUTROPHILS # (AUTO) 3.8 x10^3/uL (2.2-4.8); NEUTROPHILS % (AUTO) 71.9 % (42.0-75.0); PLATELET COUNT 282 X10^3/uL (150.0-450.0); RED BLOOD COUNT 4.36 X10^6/uL (3.5-5.4); RED CELL DISTRIBUTION WIDTH 15.2 % (11.6-16.5); WHITE BLOOD COUNT 5.3 X10^3/uL (3.6-10.0)
[2022-08-03 10:20] LABS: INR 1.05 (0.8-1.3)
[2022-08-03 10:28] LABS: ALANINE AMINOTRANSFERASE 17 Units/L (12-78); ALBUMIN 3.5 g/dL (3.4-5.0); ALKALINE PHOSPHATASE 114 Units/L (46-116); ASPARTATE AMINO TRANSFERASE 25 Units/L (15-37); BLOOD UREA NITROGEN 10 mg/dL (7-18); CALCIUM 8.6 mg/dL (8.5-10.1); CARBON DIOXIDE 27.7 mmol/L (21-32); CHLORIDE 103 mmol/L (98-107); CREATINE KINASE 118 Units/L (26-192); CREATININE 0.92 mg/dL (0.55-1.02); GLUCOSE 101 mg/dL (65-99); POTASSIUM 3.6 mmol/L (3.5-5.1); SODIUM 141 mmol/L (136-145); TOTAL PROTEIN 7.2 g/dL (6.4-8.2); eGFR NON BLACK RACES > 60 (>60)
--- NOTE | 2022-08-03 10:31 | CT ---
HISTORYHEADACHE.brSTUDYBRAIN W/O CONCOMPARISONCT brain 05/20/2020.TECHNIQUEMultiple axial images of the head were performed from the skullbase to the vertex using standard departmental protocol. Sagittal and coronal reformatted images were performed. Dose reduction techniques including Automated Exposure Control (AEC) and adjustment of mA and kV were utilized.FINDINGSThe lateral ventricles and basilar cisterns are patent.No parenchymal mass or hematoma. Chan-white differentiation appears acutely preserved. Mild low attenuation change in the subcortical and deep supratentorial white matter.No extra-axial collection.The globes are intact. There is moderate thickening of the left medial rectus muscle image 9 series 7.Mostly empty sella.No air fluid levels in the paranasal sinuses. No paranasal sinus wall thickening or sclerosis. Mastoid air cells are clear.The calvarium is intact.IMPRESSIONNo acute intracranial abnormality. Moderate thickening of the left medial rectus muscle often seen with Graves disease.Electronically signed by: Joe Miramontes (August 03, 2022 10:30:19)
[2022-08-03 10:52] LABS: BILIRUBIN,URINE NEGATIVE (NEGATIVE); BLOOD/HEMOGLOBIN,URINE NEGATIVE (NEGATIVE); GLUCOSE, URINE NEGATIVE (NEGATIVE); KETONES,URINE NEGATIVE (NEGATIVE); LEUKOCYTE ESTERASE ,URINE NEGATIVE (NEGATIVE); NITRITES,URINE NEGATIVE (NEGATIVE); PH,URINE 6.5 (5.0 - 8.0); PROTEIN,URINE NEGATIVE (NEGATIVE); UROBILINOGEN,URINE NORMAL (NORMAL)
[2022-08-03 10:53] LABS: APPEARANCE,URINE CLEAR (CLEAR); COLOR,URINE PALE YELLOW (YELLOW)
--- NOTE | 2022-08-03 11:35 | EKG ---
Test Reason : HTN Blood Pressure : */* mmHG Vent. Rate : 52 BPM Atrial Rate : 52 BPM P-R Int : 180 ms QRS Dur : 90 ms QT Int : 354 ms P-R-T Axes : 58 -8 7 degrees QTc Int : 329 ms Sinus bradycardia Septal infarct , age undetermined Abnormal ECG No previous ECGs available Confirmed by José Antonio Rausch ([id number]) on 08/04/2022 8:07:49 AM Referred By: Confirmed By: José Antonio Rausch
[2022-08-03] MEDS ORDERED: NORCO 10/325 TAB PO PRN (13:12)
[2022-08-03] MEDS ORDERED: NORVASC TAB 5 MG PO SCH ×2 (14:00→21:00)
[2022-08-03] MEDS ORDERED: CATAPRES TAB 0.1 MG PO PRN (14:35)
[2022-08-03 15:27] VITALS: BMI 37.4
[2022-08-03] MEDS ORDERED: PLAVIX ONE (15:40)
[2022-08-03] MEDS ORDERED: ASPIRIN 81 MG CHEWTAB ONE (15:40)
[2022-08-03] MEDS ORDERED: PLAVIX PO ONE (15:45)
[2022-08-03] MEDS ORDERED: ASPIRIN 81 MG CHEWTAB PO ONE (15:46)
[2022-08-03] MEDS ORDERED: HEPARIN SODIUM IN D5W 25,000 UNITS/500 ML BAG IV PRN (15:49)
[2022-08-03] MEDS ORDERED: HEPARIN SODIUM INJ 5000 UNITS IVP ONE (16:05)
[2022-08-03] MEDS ORDERED: HEPARIN SODIUM IN D5W 25,000 UNITS/500 ML BAG ONE (16:06)
[2022-08-03] MEDS ORDERED: HEPARIN SODIUM INJ 5000 UNITS ONE (16:06)
[2022-08-03] MEDS: NS 1,000 ML IV 1,000 ML IV SCH (16:11)
[2022-08-03] MEDS ORDERED: GLUCOPHAGE ONE (16:53)
[2022-08-03] MEDS: GLUCOPHAGE PO SCH (17:02)
--- NOTE | 2022-08-03 17:12 | VAS ---
HISTORY: Concern for carotid artery stenosis. Hypertensive emergency. TIA versus CVA. Left-sided weakness.EXAM: BILATERAL DOPPLER CAROTID ULTRASOUND EXAMTechnique: Multiple pineda scale and color flow Doppler images of the right and left carotid arterial system were obtained.The vertebral arterial system was evaluated as well.Findings: Nonocclusive color flow Doppler is seen throughout the right and left carotid arterial system. No hemodynamically significant carotid arterial stenosis is seen based on velocity criteria. There is mild bilateral carotid atherosclerosis and mixed atherosclerotic plaque formation of the bilateral carotid bulbs and ICAs with associated intimal thickening but [without] evidence for high-grade stenosis (>70%) or occlusion of the carotid arteries. The right and left vertebral artery demonstrate antegrade flow.IMPRESSION: Mild bilateral carotid atherosclerosis and mixed atherosclerotic plaque formation of the bilateral carotid bulbs and [in both] ICAs with [id number] associated carotid intimal thickening but without evidence for high-grade stenosis or occlusion of the carotid arteries, based on Doppler velocity criteria.Appropriate, antegrade, vertebral arterial flow.Peak right ICA velocity: 72 centimeter/seconds.Peak right CCA velocity: 105 centimeter/seconds.Peak left ICA velocity: 78 centimeter/seconds.Peak left CCA velocity: 116 centimeter/seconds.Right ICA to CCA ratio: 0.94.Left ICA to CCA ratio: 1.47.Electronically signed by: CALI MITCHELL III (August 03, 2022 17:11:23)
[2022-08-03] MEDS: HEPARIN SODIUM IN D5W 25,000 UNITS/500 ML BAG IV PRN (17:29)
[2022-08-03] MEDS: XALATAN OP SCH (21:21)
[2022-08-03] MEDS: NEURONTIN CAP 300 MG PO SCH (21:22)
[2022-08-03] MEDS: VOLTAREN 1 % GEL MULTI DOSE TUBE TOP SCH (21:22)
[2022-08-04] MEDS: NORCO 10/325 TAB PO PRN ×2 (03:45→11:49)
[2022-08-04] MEDS: NS 1,000 ML IV 1,000 ML IV SCH ×2 (03:49→19:59)
[2022-08-04 07:12] LABS: BASOPHILS % (AUTO) 0.5 % (0.2-1.0); EOSINOPHILS # (AUTO) 0.2 x10^3/uL (0.0-0.2); EOSINOPHILS % (AUTO) 2.3 % (0.9-2.9); HEMATOCRIT 32.3 % (36.0-47.0); HEMOGLOBIN 10.4 g/dL (12.0-16.0); LYMPHOCYTES % (AUTO) 15.5 % (21.0-51.0); MEAN CORPUSCULAR HEMOGLOBIN 25.7 pg (27.0-34.0); MEAN CORPUSCULAR HGB CONC 32.2 g/dL (33.0-35.0); MEAN CORPUSCULAR VOLUME 79.6 fL (80.0-100.0); MEAN PLATELET VOLUME 7.8 fL (7.4-11.0); MONOCYTES # (AUTO) 0.6 x10^3/uL (0.3-0.8); MONOCYTES % (AUTO) 9.4 % (0.0-13.0); NEUTROPHILS # (AUTO) 4.7 x10^3/uL (2.2-4.8); NEUTROPHILS % (AUTO) 72.3 % (42.0-75.0); PLATELET COUNT 258 X10^3/uL (150.0-450.0); RED BLOOD COUNT 4.05 X10^6/uL (3.5-5.4); RED CELL DISTRIBUTION WIDTH 15.4 % (11.6-16.5); WHITE BLOOD COUNT 6.5 X10^3/uL (3.6-10.0)
[2022-08-04 07:21] LABS: ALANINE AMINOTRANSFERASE 14 Units/L (12-78); ALBUMIN 3.1 g/dL (3.4-5.0); ALKALINE PHOSPHATASE 108 Units/L (46-116); ASPARTATE AMINO TRANSFERASE 21 Units/L (15-37); BLOOD UREA NITROGEN 10 mg/dL (7-18); CALCIUM 8.5 mg/dL (8.5-10.1); CARBON DIOXIDE 27.3 mmol/L (21-32); CHLORIDE 103 mmol/L (98-107); COR CA(FOR HYPOALB) 9.2 mg/dL (8.5-10.1); COR NA(FOR HYPERGLY) 138 mmol/L (136-145); GLUCOSE 113 mg/dL (65-99); MAGNESIUM 1.5 mg/dL (2.0-2.9); POTASSIUM 3.9 mmol/L (3.5-5.1); SODIUM 138 mmol/L (136-145); TOTAL PROTEIN 6.8 g/dL (6.4-8.2); eGFR NON BLACK RACES 58 (>60)
[2022-08-04] MEDS: GLUCOPHAGE PO SCH ×2 (07:58→16:22)
--- NOTE | 2022-08-04 08:22 | DR.H&P ---
H&P - History & Physical for Day of: H&P Date: 08/03/22 - Chief Complaint Chief Complaint: intractable headache, left side weakness - History of Present Illness History of Present Illness: PT IS 67 BF, ER ADMISSION WITH CO OF INTRACTABLE LARIOS, AND LEFT HAND AND LOWER EXTREMITY WEAKNESS. PT HAS PMH OF CVA AND IS ON PLAVIX. PT HAS PMH OF HTN, DM, C SPINE DDD, OA. PT ADMITTED FOR TREATMENT AND EVALUATION OF ACUTE ILLNESS. - Past Medical History Past Medical History: Anxiety, Arthritis, Diabetes, Hypertension - Past Surgical History Surgical History: Appendectomy, Hysterectomy Additional Surgical History: TIA - Family History Family Medical History: Diabetes Mellitus, [place], Hypertension - Social History Does patient currently use any type of tobacco product: No Have you used tobacco products in the last 12 months: No Type of Tobacco Use: None Does any household member use tobacco: No Alcohol Use: None Drug Use: None - Medications Home Medications: No Known Drug Allergies Allergy (Verified 06/27/20 07:44) CONTINUE taking the following medications amlodipine 5 mg tablet 5 mg PO QDAY blood pressure 08/03/22 [History] clopidogrel 75 mg tablet 75 mg PO QDAY 08/03/22 [History] diclofenac sodium 1 % topical gel 2 g topical QID 08/03/22 [History] ezetimibe 10 mg tablet 10 mg PO QDAY 08/03/22 [History] ferrous sulfate 325 mg (65 mg iron) tablet (FeroSul) 325 mg PO QDAY 08/03/22 [History] gabapentin 300 mg capsule 600 mg PO HS 08/03/22 [History] hydrocodone 10 mg-acetaminophen 325 mg tablet 1 tab PO Q8H PRN pain 08/03/22 [History] latanoprost 0.005 % eye drops 1 drp ophthalmic (eye) DAILY 08/03/22 [History] pantoprazole 40 mg tablet,delayed release 40 mg PO QDAY 08/03/22 [History] simvastatin 10 mg tablet 10 mg PO QDAY 08/03/22 [History] - Review of Systems Constitutional: Weakness Eyes: No Symptoms Reported ENT: No Symptoms Reported Respiratory: No Symptoms Reported Cardiovascular: Palpitations Gastrointestinal: No Symptoms Reported Genitourinary: No Symptoms Reported Musculoskeletal: Back Pain, Neck Pain Skin: No Symptoms Reported Neurological: Weakness, Numbness (CO NUMBNESS TO LEFT HAND) - Physical Exam Vital Signs: Temperature 98.5 F Pulse Rate [Left Radial] 56 Pulse Rate 60 Respiratory Rate 28 Blood Pressure [Left Arm] 163/71 Blood Pressure [Right Arm] 124/65 Blood Pressure 171/69 O2 Sat by Pulse Oximetry 97 Oriented: Normal Eyes: Normal Ear: Normal Nose: Normal Throat: Normal Respiratory: RLL Diminished, LLL Diminished Cardiovascular: Normal, Edema (TRACE BILATER LOWER EXTREMITY EDEMA) : Normal Auscultation: Bowel Sounds: Normal Tenderness: Normal Skin: Normal Musculoskeletal: Back:Lumbar Psychiatric: Anxiety Affect: Anxious Speech Pattern: Clear, Appropriate - Assessment/Plan (1) TIA (transient ischemic attack) Status: Acute Plan: PT HAD CT HEAD IN ER, ADMIT ICU. NEURO CHECKS, CAROTID ARTERY US, FLP IN THE AM. ADMISSION LABS, CARDIAC ENZYMES, VERIFY HOME MEDICATION. I&OS, PRN SUPPLEMENTAL O2, CXR ON ADMISSION (2) Hypertension Status: Acute (3) Diabetes Status: Acute (4) Acute left-sided weakness Status: Acute (5) Hyperlipidemia Status: Acute - Allergies Allergies/Adverse Reactions: Allergies Allergy/AdvReac Type Severity Reaction Status Date / Time No Known Drug Allergies Allergy Verified 06/27/20 07:44
[2022-08-04] MEDS ORDERED: XANAX PO ONE (08:29)
[2022-08-04 08:48] LABS: CHOL/HDL RATIO 1.9 (0.0-5.0); FREE T4 (FREE THYROXINE) 1.01 ng/dL (0.76-1.46); TSH (3RD GENERATION) 1.696 uIU/mL (0.358-3.74)
[2022-08-04] MEDS ORDERED: PLAVIX PO SCH (09:00)
[2022-08-04] MEDS ORDERED: ASPIRIN 81 MG CHEWTAB PO SCH (09:00)
[2022-08-04] MEDS ORDERED: XALATAN OP SCH (09:00)
[2022-08-04] MEDS: VOLTAREN 1 % GEL MULTI DOSE TUBE TOP SCH ×4 (09:17→20:26)
[2022-08-04] MEDS: NORVASC TAB 5 MG PO SCH (09:17)
[2022-08-04] MEDS: PROTONIX TAB 40 MG PO SCH (09:17)
[2022-08-04] MEDS: PLAVIX PO SCH (09:17)
[2022-08-04] MEDS: FERROUS GLUCONATE PO SCH (09:17)
[2022-08-04] MEDS: ZETIA TAB 10 MG PO SCH (09:18)
[2022-08-04] MEDS: ZOCOR TAB 10 MG PO SCH (09:18)
--- NOTE | 2022-08-04 14:47 | MRI ---
HISTORYTIA vs CVA; left side weaknessSTUDYBRAIN W/O CONCOMPARISONCT head without contrast from August 03, 2022TECHNIQUENon-contrast MRI images of the brain were obtained utilizing a routine protocol.FINDINGSBlooming artifact limits evaluation of the left frontal/anterior left parietal lobes; secondary to a linear metallic foci contained within the left frontal calvarium.No abnormal signal in the dural sinuses on the sagittal T1 sequence.Pituitary gland and stalk appear normal.No mass effect on the optic chiasm.No Chiari 1 malformation.Imaged portion of the spine and spinal cord appear grossly normal.No restricted diffusion.Flow voids appear normal on the T2 sequence.No intracranial, extra-axial, fluid collection.No mass, mass effect or midline shift.No abnormal areas of acute T2 signal in the brain parenchyma.No blooming artifact in the brain parenchyma.Sinuses are well aeratedMastoid air cells are well aerated.Globes and intra-orbital contents appear normal.No ventriculomegaly.IMPRESSIONBlooming artifact limits evaluation of the left frontal/anterior left parietal lobes; secondary to a linear metallic foci contained within the left frontal calvarium. No acute intracranial abnormality identified.Electronically signed by: Samy Wyatt (August 04, 2022 14:45:32)
[2022-08-04] MEDS ORDERED: K-DUR TAB 20 MEQ PO PRN (16:08)
[2022-08-04] MEDS ORDERED: MAGNESIUM SULFATE 1 GRAM/100 mL PREMIX 1 G/100 ML BAG IV ONE (16:12)
[2022-08-04] MEDS: MAGNESIUM SULFATE 1 GRAM/100 mL PREMIX 1 G/100 ML BAG IV PRN ×2 (16:21→19:45)
[2022-08-04] MEDS ORDERED: TYLENOL 325 MG TAB PO PRN (16:59)
[2022-08-04] MEDS ORDERED: TYLENOL 325 MG TAB PO ONE (17:01)
[2022-08-04] MEDS: COZAAR PO SCH (17:15)
[2022-08-04] MEDS: MORPHINE SULFATE INJ 2 MG INJ IVP PRN (17:15)
[2022-08-04] MEDS: HEPARIN SODIUM IN D5W 25,000 UNITS/500 ML BAG IV PRN (19:53)
[2022-08-04] MEDS: NEURONTIN CAP 300 MG PO SCH (20:25)
[2022-08-04] MEDS: XALATAN OP SCH (20:26)
[2022-08-05] MEDS: NS 1,000 ML IV 1,000 ML IV SCH ×2 (06:23→19:54)
[2022-08-05] MEDS ORDERED: GLUCOPHAGE ONE (06:24)
[2022-08-05] MEDS: GLUCOPHAGE PO SCH ×2 (06:25→16:49)
[2022-08-05 07:35] LABS: BASOPHILS % (AUTO) 0.7 % (0.2-1.0); EOSINOPHILS # (AUTO) 0.1 x10^3/uL (0.0-0.2); EOSINOPHILS % (AUTO) 1.4 % (0.9-2.9); HEMATOCRIT 31.5 % (36.0-47.0); HEMOGLOBIN 10.3 g/dL (12.0-16.0); LYMPHOCYTES # (AUTO) 0.9 X10^3/uL (1.3-2.9); LYMPHOCYTES % (AUTO) 17.2 % (21.0-51.0); MEAN CORPUSCULAR HEMOGLOBIN 25.7 pg (27.0-34.0); MEAN CORPUSCULAR HGB CONC 32.6 g/dL (33.0-35.0); MEAN CORPUSCULAR VOLUME 78.9 fL (80.0-100.0); MEAN PLATELET VOLUME 7.8 fL (7.4-11.0); MONOCYTES # (AUTO) 0.8 x10^3/uL (0.3-0.8); MONOCYTES % (AUTO) 14.6 % (0.0-13.0); NEUTROPHILS # (AUTO) 3.5 x10^3/uL (2.2-4.8); NEUTROPHILS % (AUTO) 66.1 % (42.0-75.0); PLATELET COUNT 243 X10^3/uL (150.0-450.0); RED BLOOD COUNT 3.99 X10^6/uL (3.5-5.4); RED CELL DISTRIBUTION WIDTH 15.3 % (11.6-16.5); WHITE BLOOD COUNT 5.3 X10^3/uL (3.6-10.0)
[2022-08-05 07:44] LABS: ALANINE AMINOTRANSFERASE 13 Units/L (12-78); ALKALINE PHOSPHATASE 104 Units/L (46-116); ASPARTATE AMINO TRANSFERASE 20 Units/L (15-37); BLOOD UREA NITROGEN 8 mg/dL (7-18); CALCIUM 8.4 mg/dL (8.5-10.1); CARBON DIOXIDE 29.3 mmol/L (21-32); CHLORIDE 103 mmol/L (98-107); COR CA(FOR HYPOALB) 9.2 mg/dL (8.5-10.1); CREATININE 0.94 mg/dL (0.55-1.02); GLUCOSE 110 mg/dL (65-99); MAGNESIUM 1.8 mg/dL (2.0-2.9); POTASSIUM 3.8 mmol/L (3.5-5.1); SODIUM 138 mmol/L (136-145); TOTAL PROTEIN 6.8 g/dL (6.4-8.2); eGFR NON BLACK RACES > 60 (>60)
[2022-08-05] MEDS: FERROUS GLUCONATE PO SCH (08:06)
[2022-08-05] MEDS: ZETIA TAB 10 MG PO SCH (08:06)
[2022-08-05] MEDS: ZOCOR TAB 10 MG PO SCH (08:07)
[2022-08-05] MEDS: PLAVIX PO SCH (08:07)
[2022-08-05] MEDS: PROTONIX TAB 40 MG PO SCH (08:07)
[2022-08-05] MEDS: NORVASC TAB 5 MG PO SCH (08:07)
[2022-08-05] MEDS: COZAAR PO SCH (08:07)
[2022-08-05] MEDS: VOLTAREN 1 % GEL MULTI DOSE TUBE TOP SCH ×4 (08:10→20:45)
[2022-08-05] MEDS: MAGNESIUM SULFATE 1 GRAM/100 mL PREMIX 1 G/100 ML BAG IV PRN ×2 (08:10→11:35)
[2022-08-05] MEDS: MORPHINE SULFATE INJ 2 MG INJ IVP PRN ×2 (08:10→23:52)
[2022-08-05] MEDS: NORCO 10/325 TAB PO PRN ×2 (11:36→21:45)
[2022-08-05] MEDS: XALATAN OP SCH (20:42)
[2022-08-05] MEDS: NEURONTIN CAP 300 MG PO SCH (20:42)
[2022-08-06 05:17] LABS: BASOPHILS # (AUTO) 0.1 X10^3/uL (0.0-0.1); BASOPHILS % (AUTO) 1.1 % (0.2-1.0); EOSINOPHILS # (AUTO) 0.1 x10^3/uL (0.0-0.2); EOSINOPHILS % (AUTO) 2.4 % (0.9-2.9); HEMATOCRIT 29.4 % (36.0-47.0); HEMOGLOBIN 9.8 g/dL (12.0-16.0); LYMPHOCYTES # (AUTO) 0.8 X10^3/uL (1.3-2.9); LYMPHOCYTES % (AUTO) 16.2 % (21.0-51.0); MEAN CORPUSCULAR HEMOGLOBIN 26.3 pg (27.0-34.0); MEAN CORPUSCULAR HGB CONC 33.5 g/dL (33.0-35.0); MEAN CORPUSCULAR VOLUME 78.5 fL (80.0-100.0); MEAN PLATELET VOLUME 7.9 fL (7.4-11.0); MONOCYTES # (AUTO) 0.6 x10^3/uL (0.3-0.8); MONOCYTES % (AUTO) 12.5 % (0.0-13.0); NEUTROPHILS # (AUTO) 3.4 x10^3/uL (2.2-4.8); NEUTROPHILS % (AUTO) 67.8 % (42.0-75.0); PLATELET COUNT 239 X10^3/uL (150.0-450.0); RED BLOOD COUNT 3.75 X10^6/uL (3.5-5.4); RED CELL DISTRIBUTION WIDTH 15.4 % (11.6-16.5)
[2022-08-06 05:39] LABS: ALANINE AMINOTRANSFERASE 14 Units/L (12-78); ALBUMIN 2.9 g/dL (3.4-5.0); ALKALINE PHOSPHATASE 96 Units/L (46-116); ASPARTATE AMINO TRANSFERASE 20 Units/L (15-37); BLOOD UREA NITROGEN 8 mg/dL (7-18); CALCIUM 8.3 mg/dL (8.5-10.1); CARBON DIOXIDE 29.4 mmol/L (21-32); CHLORIDE 103 mmol/L (98-107); COR CA(FOR HYPOALB) 9.2 mg/dL (8.5-10.1); COR NA(FOR HYPERGLY) 138 mmol/L (136-145); CREATININE 0.92 mg/dL (0.55-1.02); GLUCOSE 115 mg/dL (65-99); MAGNESIUM 1.8 mg/dL (2.0-2.9); POTASSIUM 3.8 mmol/L (3.5-5.1); SODIUM 138 mmol/L (136-145); TOTAL PROTEIN 6.7 g/dL (6.4-8.2); eGFR NON BLACK RACES > 60 (>60)
[2022-08-06] MEDS: GLUCOPHAGE PO SCH ×2 (06:17→16:21)
--- NOTE | 2022-08-06 08:35 | PCM.PROG ---
Progress Note - Progress Note for Day of Date of Exam: 08/05/22 - Subjective Subjective: The patient is a 67-year-old black female who was an ER admission after presenting with intractable headache, as well as new onset left sided weakness. She had a CT of her brain in the ER without any acute findings noted. The patient did have a witnessed episode of left sided weakness including left upper and lower extremity. The patient had good movement of left upper and lower extremity at that time. She states that the episodes come in waves and then relieve. We reviewed the patients labs. We have continued her home medications. She had previously only been on amlodipine. She had been on Losartan but admits she has not been taking it for some time. We ordered Losartan 25 mg once daily with her amlodipine. Her lipids showed a total cholesterol at 182, LDL 73, and HDL 97. Thyroid levels were stable. We have an MRI/MRA of the head and neck ordered to be obtained today. She has a history of type 2 diabetes mellitus pretty controlled. Her blood sugar has been controlled since she has been here. Her blood pressure this morning is elevated prior to med rounds. She has been afebrile. The patient does have chronic osteoarthritic pain. She does have degenerative disc disease with a history of some spinal canal stenosis to her C-spine which is chronic. We ordered a MRI c spine with precert pending. - Past Medical Family Social History Past Med/Fam/Surg Hx: No changes since H&P Allergies: Allergies No Known Drug Allergies Allergy (Verified 06/27/20 07:44) - Review of Systems ROS: No change since H&P - Vital Signs and I&O's Vital Signs: Temperature 98.4 F Pulse Rate [Left Radial] 56 Pulse Rate 68 Respiratory Rate 18 Blood Pressure [Left Arm] 163/71 Blood Pressure [Right Arm] 124/65 Blood Pressure 140/64 O2 Sat by Pulse Oximetry 96 Intake and Output: Intake & Output 08/03/22 08/04/22 08/05/22 08/06/22 11:59 11:59 11:59 11:59 Intake Total 1317.8 / 1317.8 2637.2 / 2637.2 185 / 1850 Output Total 1800 / 1800 Balance -482.2 / -482.2 2637.2 / 2637.2 1849 - Physical Exam Oriented: Normal Eyes: Normal Ear: Normal Nose: Normal Throat: Normal Cardiovascular: Normal, Edema (TRACE BILATER LOWER EXTREMITY EDEMA) : Normal Auscultation: Bowel Sounds: Normal Tenderness: Normal Skin: Normal Musculoskeletal: Back:Lumbar, Tender, Sensory Deficit (bilateral hand) Psychiatric: Anxiety Mood Description: Calm Affect: Anxious Speech Pattern: Clear, Appropriate - Laboratory and Diagnostics Result Diagrams: 08/06/22 04:40 08/06/22 04:40 Labs: Laboratory WBC 5.0 X10^3/uL (3.6-10.0) 08/06/22 04:40 RBC 3.75 X10^6/uL (3.5-5.4) 08/06/22 04:40 Hgb 9.8 g/dL (12.0-16.0) L 08/06/22 04:40 Hct 29.4 % (36.0-47.0) L 08/06/22 04:40 MCV 78.5 fL (80.0-100.0) L 08/06/22 04:40 MCH 26.3 pg (27.0-34.0) L 08/06/22 04:40 MCHC 33.5 g/dL (33.0-35.0) 08/06/22 04:40 RDW 15.4 % (11.6-16.5) 08/06/22 04:40 Plt Count 239 X10^3/uL (150.0-450.0) 08/06/22 04:40 MPV 7.9 fL (7.4-11.0) 08/06/22 04:40 Neut % (Auto) 67.8 % (42.0-75.0) 08/06/22 04:40 Lymph % (Auto) 16.2 % (21.0-51.0) L 08/06/22 04:40 [place] % (Auto) 12.5 % (0.0-13.0) 08/06/22 04:40 Eos % (Auto) 2.4 % (0.9-2.9) 08/06/22 04:40 Baso % (Auto) 1.1 % (0.2-1.0) H 08/06/22 04:40 Neut # (Auto) 3.4 x10^3/uL (2.2-4.8) 08/06/22 04:40 Lymph # (Auto) 0.8 X10^3/uL (1.3-2.9) L 08/06/22 04:40 [place] # (Auto) 0.6 x10^3/uL (0.3-0.8) 08/06/22 04:40 Eos # (Auto) 0.1 x10^3/uL (0.0-0.2) 08/06/22 04:40 Baso # (Auto) 0.1 X10^3/uL (0.0-0.1) 08/06/22 04:40 Absolute Nucleated RBC 0.1 /100WBC 08/06/22 04:40 PT 13.5 SECONDS (11.8-14.3) 08/03/22 10:00 INR Target Range - 08/03/22 10:00 INR 1.05 (0.8-1.3) 08/03/22 10:00 APTT 89.4 SECONDS (22.9-36.5) H 08/05/22 07:19 PTT Comment - 08/05/22 07:19 Sodium 138 mmol/L (136-145) 08/06/22 04:40 Corrected Sodium 138 mmol/L (136-145) 08/06/22 04:40 Potassium 3.8 mmol/L (3.5-5.1) 08/06/22 04:40 Chloride 103 mmol/L (98-107) 08/06/22 04:40 Carbon Dioxide 29.4 mmol/L (21-32) 08/06/22 04:40 BUN 8 mg/dL (7-18) 08/06/22 04:40 Creatinine 0.92 mg/dL (0.55-1.02) 08/06/22 04:40 Est GFR (MDRD) Af Amer > 60 (>60) 08/06/22 04:40 Est GFR (MDRD) Non-Af > 60 (>60) 08/06/22 04:40 Glucose 115 mg/dL (65-99) H 08/06/22 04:40 POC Glucose (mg/dL) 104 mg/dL (65-99) H 08/03/22 16:54 Calcium 8.3 mg/dL (8.5-10.1) L 08/06/22 04:40 Corrected Calcium 9.2 mg/dL (8.5-10.1) 08/06/22 04:40 Magnesium 1.8 mg/dL (2.0-2.9) L 08/06/22 04:40 Total Bilirubin 0.40 mg/dL (0.2-1.0) 08/06/22 04:40 AST 20 Units/L (15-37) 08/06/22 04:40 ALT 14 Units/L (12-78) 08/06/22 04:40 Alkaline Phosphatase 96 Units/L (46-116) 08/06/22 04:40 Creatine Kinase 118 Units/L (26-192) 08/03/22 10:00 Troponin I High Sens 9.1 ng/L (4.0-60.0) 08/03/22 10:00 B-Natriuretic Peptide 37.1 pg/mL (0-79) 08/03/22 10:00 Total Protein 6.7 g/dL (6.4-8.2) 08/06/22 04:40 Albumin 2.9 g/dL (3.4-5.0) L 08/06/22 04:40 Globulin 3.8 g/dL (2.5-4.5) 08/06/22 04:40 Albumin/Globulin Ratio 0.8 Ratio (1.1-2.1) L 08/06/22 04:40 Triglycerides 59 mg/dL (0-150) 08/04/22 06:57 Cholesterol 182 mg/dL (0-200) 08/04/22 06:57 LDL Cholesterol, Calc 73 mg/dL (0-100) 08/04/22 06:57 HDL Cholesterol 97 mg/dL (40-60) H 08/04/22 06:57 Cholesterol/HDL Ratio 1.9 (0.0-5.0) 08/04/22 06:57 Free T4 1.01 ng/dL (0.76-1.46) 08/04/22 06:57 TSH 3rd Generation 1.696 uIU/mL (0.358-3.74) 08/04/22 06:57 Specimen Type Random urine 08/03/22 10:40 Urine Color Pale yellow (YELLOW) 08/03/22 10:40 Urine Appearance Clear (CLEAR) 08/03/22 10:40 Urine pH 6.5 (5.0 - 8.0) 08/03/22 10:[address] 1.015 (1.000-1.030) 08/03/22 10:40 Urine Protein Negative (NEGATIVE) 08/03/22 10:40 Urine Glucose (UA) Negative (NEGATIVE) 08/03/22 10:40 Urine Ketones Negative (NEGATIVE) 08/03/22 10:40 Urine Blood Negative (NEGATIVE) 08/03/22 10:40 Urine Nitrite Negative (NEGATIVE) 08/03/22 10:40 Urine Bilirubin Negative (NEGATIVE) 08/03/22 10:40 Urine Urobilinogen Normal (NORMAL) 08/03/22 10:40 Ur Leukocyte Esterase Negative (NEGATIVE) 08/03/22 10:40 - Plan (1) TIA (transient ischemic attack) Status: Acute Plan: PT HAD CT HEAD IN ER, ADMIT ICU. NEURO CHECKS, CAROTID ARTERY US, FLP OBTAINED. AM LABS, CARDIAC ENZYMES, VERIFY HOME MEDICATION. I&OS, PRN SUPPLEMENTAL O2, CXR ON ADMISSION. MRI C SPINE. MRI BRAIN, MRA BRAIN AND NECK ORDERED ON ADMISSION TO ICU. INSURANCE DENIED MRAs (2) Hypertension Status: Acute (3) Diabetes Status: Acute (4) Acute left-sided weakness Status: Acute (5) Hyperlipidemia Status: Acute
[2022-08-06] MEDS: PROTONIX TAB 40 MG PO SCH (09:07)
[2022-08-06] MEDS: FERROUS GLUCONATE PO SCH (09:07)
[2022-08-06] MEDS: ZETIA TAB 10 MG PO SCH (09:07)
[2022-08-06] MEDS: COZAAR PO SCH (09:07)
[2022-08-06] MEDS: ZOCOR TAB 10 MG PO SCH (09:07)
[2022-08-06] MEDS: PLAVIX PO SCH (09:07)
[2022-08-06] MEDS: NORVASC TAB 5 MG PO SCH (09:07)
[2022-08-06] MEDS: VOLTAREN 1 % GEL MULTI DOSE TUBE TOP SCH ×4 (09:57→20:41)
[2022-08-06] MEDS: MORPHINE SULFATE INJ 2 MG INJ IVP PRN (12:12)
[2022-08-06] MEDS ORDERED: FIORICET TAB PO ONE (13:09)
--- NOTE | 2022-08-06 14:13 | MRI ---
HISTORYLUE WEAKNESS, HX OF CORD COMPRESSIONSTUDYMRI cervical spine without IV contrastCOMPARISONMRI 05/31/2020TECHNIQUEMultiplanar multisequence MRI of the cervical spine was obtained without IV contrast.FINDINGSThe cerebellar tonsils are normally positioned. No subluxation. No prevertebral edema. No abnormal bony signal. Cord signal appears slightly heterogeneous on T2 weighted imaging, but the appearance is changing between the different series. The signal appears normal on the standard axial T2 weighted series.C2 -- C3: No significant stenosis.C3 -- C4: Mild posterior osteophytes are seen with likely mild cord contact. Stenosis has minimally worsened since prior study. No cord compression is seen. Little neural foraminal narrowing is seen.C4 -- C5: Mild posterior osteophytes are seen without cord contact. Little neural foraminal narrowing is seen.C5 -- C6: Mild posterior osteophytes are seen with no cord contact. Mild right neural foraminal narrowing is seen.C6 -- C7: Mild posterior osteophytes are seen with mild central canal and neural foraminal narrowing. Possible slight cord contact is present.C7 -- T1: Likely mild central disc bulge causes no stenosis. This is similar to prior study.There is likely mild central disc bulge at T1-2, also. This is probably unchanged and causes no significant stenosis.IMPRESSIONDisc bulge at C7-T1 may cause slight cord contact, similar to prior study. Stable appearing disc bulge at T1-2 causes no significant stenosis.Posterior osteophytes may cause cord contact at C6-7 and C3-4.Electronically signed by: Sanya Lorenzo (August 06, 2022 14:11:55)
[2022-08-06] MEDS: MAGNESIUM SULFATE 1 GRAM/100 mL PREMIX 1 G/100 ML BAG IV PRN (15:26)
[2022-08-06] MEDS: NORCO 10/325 TAB PO PRN (18:09)
[2022-08-06] MEDS: NS 1,000 ML IV 1,000 ML IV SCH ×2 (19:08→20:40)
[2022-08-06] MEDS: NEURONTIN CAP 300 MG PO SCH (20:41)
[2022-08-06] MEDS: XALATAN OP SCH (20:42)
[2022-08-07] MEDS: MORPHINE SULFATE INJ 2 MG INJ IVP PRN (02:15)
[2022-08-07 05:48] LABS: BASOPHILS % (AUTO) 0.6 % (0.2-1.0); EOSINOPHILS # (AUTO) 0.1 x10^3/uL (0.0-0.2); EOSINOPHILS % (AUTO) 2.8 % (0.9-2.9); HEMATOCRIT 30.9 % (36.0-47.0); HEMOGLOBIN 10.4 g/dL (12.0-16.0); LYMPHOCYTES # (AUTO) 1.1 X10^3/uL (1.3-2.9); LYMPHOCYTES % (AUTO) 20.2 % (21.0-51.0); MEAN CORPUSCULAR HEMOGLOBIN 26.2 pg (27.0-34.0); MEAN CORPUSCULAR HGB CONC 33.5 g/dL (33.0-35.0); MEAN CORPUSCULAR VOLUME 78.2 fL (80.0-100.0); MEAN PLATELET VOLUME 7.9 fL (7.4-11.0); MONOCYTES # (AUTO) 0.7 x10^3/uL (0.3-0.8); MONOCYTES % (AUTO) 13.4 % (0.0-13.0); NEUTROPHILS # (AUTO) 3.3 x10^3/uL (2.2-4.8); PLATELET COUNT 261 X10^3/uL (150.0-450.0); RED BLOOD COUNT 3.95 X10^6/uL (3.5-5.4); WHITE BLOOD COUNT 5.3 X10^3/uL (3.6-10.0)
[2022-08-07 06:13] LABS: ALANINE AMINOTRANSFERASE 13 Units/L (12-78); ALBUMIN 2.9 g/dL (3.4-5.0); ALKALINE PHOSPHATASE 96 Units/L (46-116); ASPARTATE AMINO TRANSFERASE 18 Units/L (15-37); BLOOD UREA NITROGEN 7 mg/dL (7-18); CALCIUM 8.5 mg/dL (8.5-10.1); CHLORIDE 102 mmol/L (98-107); COR CA(FOR HYPOALB) 9.4 mg/dL (8.5-10.1); CREATININE 0.95 mg/dL (0.55-1.02); GLUCOSE 104 mg/dL (65-99); POTASSIUM 4.3 mmol/L (3.5-5.1); SODIUM 139 mmol/L (136-145); eGFR NON BLACK RACES > 60 (>60)
[2022-08-07] MEDS: GLUCOPHAGE PO SCH (06:28)
[2022-08-07 08:26] VITALS: O2SAT 100
[2022-08-07] MEDS: FERROUS GLUCONATE PO SCH (08:27)
[2022-08-07] MEDS: ZOCOR TAB 10 MG PO SCH (08:27)
[2022-08-07] MEDS: PROTONIX TAB 40 MG PO SCH (08:27)
[2022-08-07] MEDS: ZETIA TAB 10 MG PO SCH (08:27)
[2022-08-07] MEDS: COZAAR PO SCH (08:28)
[2022-08-07] MEDS: PLAVIX PO SCH (08:28)
[2022-08-07] MEDS: NORVASC TAB 5 MG PO SCH (08:28)
[2022-08-07] MEDS: VOLTAREN 1 % GEL MULTI DOSE TUBE TOP SCH ×2 (08:29→12:31)
[2022-08-07] MEDS: NORCO 10/325 TAB PO PRN (08:36)
[2022-08-07] MEDS: NS 1,000 ML IV 1,000 ML IV SCH (08:37)
[2022-08-07] MEDS ORDERED: SOLU-Medrol 40 MG VIAL IVP ONE (09:14)
[2022-08-07] MEDS ORDERED: TORADOL 30 MG VIAL IVP ONE (09:14)
[2022-08-07] MEDS ORDERED: MAALOX or MYLANTA PO PRN (12:32)
[2022-08-07 12:37] VITALS: BP 150/66; PULSE 57; TEMP 98.8
[2022-08-07] MEDS ORDERED: MAALOX or MYLANTA ONE (12:40)
--- NOTE | 2022-08-07 13:35 | RAD ---
HISTORYSOBSTUDYCHEST, PA/LAT ADULTCOMPARISONChest x-ray 09/02/2020FINDINGSThe heart is normal in size. The pulmonary vasculature is within normal limits. The lungs appear clear. No pneumothorax, pleural effusion, or focal consolidation. No acute osseous abnormality.IMPRESSIONNo acute cardiopulmonary findings .Electronically signed by: Rigoberto Bourgeois (August 07, 2022 13:34:56)
== END 2022-08-07 14:33 | disposition home or self-care (01) ==
LOC: ER 09:21 → MED/SURG 09:21 → ICU 15:41
PROVIDERS: ADMIT Internal Medicine; ATTEND Internal Medicine